=== PATIENT | female | born 1990 ===

== ENCOUNTER → 2019-07-01 | Outpatient (CLI) | payer OTHER ==
[~2019-07-01] VITALS: Ht 162 cm; Wt 86.3 kg
[~2019-07-01] MED LIST: OMEP40CA36 PO
== END | disposition home or self-care (01) ==
LOC: PREOP 06-28 06:03
PROVIDERS: ATTEND Surgery
DX: Z01.818 Encounter for other preprocedural examination (principal)

== ENCOUNTER 2019-07-05 08:43 | Day surgery (SDC) | payer OTHER ==
[~2019-07-05] VITALS: Ht 162.6 cm; Wt 86.3 kg
[2019-07-05] MEDS ORDERED: LACTATED RINGERS 1,000 ML IV ONE (09:01)
[2019-07-05 09:32] VITALS: BP 114/69
--- NOTE | 2019-07-05 09:32 | Progress Note-Pre Operative ---
Pre-Operative Progress Note H&P Reviewed The H&P was reviewed, patient examined and no changes noted. Time Seen by Provider: 09:26 Date H&P Reviewed: Jul 05, 2019 Time H&P Reviewed: 09:25 Pre-Operative Diagnosis: Epigastric burning pain, Gastritis SONNY RUIZ DO Jul 05, 2019 09:32 POS
[2019-07-05] MEDS ORDERED: LACTATED RINGERS 1,000 ML IV STA (09:42)
[2019-07-05] MEDS ORDERED: HURRICAINE EXT TUBE (BENZOCAINE) XX PRN (09:45)
[2019-07-05] MEDS ORDERED: proPOfol 200 MG/20 ML (DIPRIVAN) VIAL IV ONE (10:33)
[2019-07-05] MEDS ORDERED: MIDAZOLAM 2 MG/2 ML (VERSED) VIAL ONE (10:33)
[2019-07-05 10:55] VITALS: BP 115/63
--- NOTE | 2019-07-05 10:58 | Progress Note-Post Operative ---
Post-Operative Progess Note Surgeon (s)/Structural Analysis Engineer (s) Surgeon SONNY RUIZ DO Structural Analysis Engineer: none Pre-Operative Diagnosis Epigastric burning pain, Gastritis Post-Operative Diagnosis Gastritis Hiatal Hernia Procedure & Operative Findings Date of Procedure 07/05/19 Procedure Performed/Findings EGD with bx Anesthesia Type IV sedation by anesthesia Estimated Blood Loss Estimated blood loss (mL): scant Specimens/Packing Specimens Removed antral bx body of stomach bx GE jxn bx SONNY RUIZ DO Jul 05, 2019 10:58 POS
--- NOTE | 2019-07-05 10:59 | Endoscopy Discharge Instruct ---
Endo Procedure/Findings Findings 1.: Gastritis 2.: Hiatal Hernia Discharge Instructions - Activity: You might feel a little sleepy until tomorrow. This is due to the medicine you received to relax you. Until tomorrow, you should: NOT drive a car, operate machinery or power tools. NOT drink any alcoholic beverages. NOT make any important decisions or sign importortant papers. Do not return to work until tomorrow, unless otherwise instructed. Resume previous activities tomorrow. Diet: Start by taking liquids. If you tolerate liquids, advance to solid food. make an appointment in one week 1.: EGD in 3 years Notify Physician - If you experience excessive bleeding, unusual abdominal pain, fever, or chest pain, contact your doctor immediately. SONNY RUIZ DO Jul 05, 2019 10:59 POS
[2019-07-05 11:00] VITALS: BP 118/70
[2019-07-05 11:05] VITALS: BP 115/69
[2019-07-05 11:10] VITALS: BP 115/69
[2019-07-05 11:34] VITALS: BP 119/68
--- NOTE | 2019-07-05 23:54 | OPERATIVE REPORT ---
DATE OF SERVICE: PREOPERATIVE DIAGNOSIS: Epigastric pain. POSTOPERATIVE DIAGNOSES: 1. Gastritis. 2. Small hiatal hernia. PROCEDURE: EGD with biopsy. SURGEON: Rd Marrero DO. PLUNGER SHOVEL OPERATOR: None. ANESTHESIA: IV sedation by the anesthesiologist. SPECIMEN: One biopsy from the antrum, one biopsy from body of stomach, one biopsy of the GE junction. BLOOD LOSS: Scant. FLUIDS: Per anesthesia. POSTOPERATIVE CONDITION: Stable. INDICATION FOR PROCEDURE: The patient is a 28-year-old female who has been having epigastric abdominal pain. stomach or gallbladder. FINDINGS: The patient had very mild gastritis, small hiatal hernia, did have a little bit of change of the GE junction. Picture taken. Biopsy done. PROCEDURE NOTE: After informed consent was obtained, the patient was brought to the endoscopy suite, placed in the bed in the left lateral decubitus position. She was administered IV sedation by the anesthesiologist who then monitored her vitals the entire time, heart rate, blood pressure and pulse ox and the scope was inserted down the mouth through the esophagus and into the stomach, pushed into the stomach, pushed through the duodenum. Duodenum looked okay, pulled back in the antrum, saw some mild gastritis, did a biopsy here, pulled back the scope; retroflexed, saw very small hiatal hernia and then did a biopsy of body of stomach and then pulled the scope up into the GE junction, saw some mild changes, took a picture and then did a biopsy. Suctioned the air out of the stomach and then pulled the scope up the esophagus and out the mouth. The patient tolerated the procedure, recovered in endoscopy suite. Job ID: [id number] DocumentID: [id number] Dictated Date: 07/05/2019 19:58:35 [employer] Prospect[employer] Observer Date: 07/05/2019 23:53:37 Dictated By: RD MARRERO DO
== END 2019-07-05 11:50 | disposition home or self-care (01) ==
LOC: ENDO 08:43
PROVIDERS: ATTEND Surgery
DX: K29.50 Unspecified chronic gastritis without bleeding (principal); B96.81 Helicobacter pylori [H. pylori] as the cause of diseases classified elsewhere; K44.9 Diaphragmatic hernia without obstruction or gangrene; K21.9 Gastro-esophageal reflux disease without esophagitis
CPT/HCPCS: 84703

== ENCOUNTER → 2019-07-15 | Outpatient (CLI) | payer OTHER ==
--- NOTE | 2019-07-06 06:56 | Anesthesia-General Post-Op ---
MAC Patient Condition Mental Status/LOC: Same as Preop Cardiovascular: Satisfactory Nausea/Vomiting: Absent Respiratory: Satisfactory Pain: Controlled Complications: Absent Post Op Complications Complications None Follow Up Care/Instructions Patient Instructions None needed. Anesthesiology Discharge Order Discharge Order Late entry: Patient was seen yesterday after the procedure and she was doing well, no complaints, stable vital signs, no apparent adverse anesthesia problems. ROBER SNYDER DO Jul 06, 2019 06:56 POS
[~2019-07-15] VITALS: Ht 162.6 cm; Wt 86.3 kg
[~2019-07-15] MED LIST changes: +ACHD5005 PO; +CATHETER FLUSH 10 ML SYR IV PRN; +HURRICAINE EXT TUBE (BENZOCAINE) XX PRN; +LACTATED RINGERS 1,000 ML IV STA; +LANS30CA PO; +OMEP40CA27 PO; -OMEP40CA36 PO
--- NOTE | 2019-07-15 12:41 | Diagnostic Imaging Report ---
INDICATION: Epigastric pain. Patient was administered 5.5 mCi technetium 99m Choletec intravenously and imaging over the abdomen was performed. At 45 minutes patient ingested one can of Ensure and the gallbladder ejection fraction was calculated. There is homogeneous uptake of activity by the liver. Prompt excretion of activity into the gallbladder and common duct is seen. There is normal passage of activity into the small bowel. Gallbladder ejection fraction is abnormally low at 9%. Normal values are 33% or greater. IMPRESSION: 1. Patent cystic duct and common bile duct. 2. Abnormally low gallbladder ejection fraction of 9%. Dictated by: Dictated on workstation # [id number]
== END ==
LOC: EDUNIT# 07-05 10:00 → CARD 09:37
PROVIDERS: ATTEND Surgery
DX: R10.816 Epigastric abdominal tenderness (principal); R10.13 Epigastric pain
CPT/HCPCS: 78227

== ENCOUNTER 2019-07-20 13:09 | Outpatient (CLI) | payer OTHER ==
[~2019-07-20] VITALS: Ht 162 cm; Wt 86.3 kg
[~2019-07-20 13:09] MED LIST changes: -ACHD5005 PO; -CATHETER FLUSH 10 ML SYR IV PRN; -HURRICAINE EXT TUBE (BENZOCAINE) XX PRN; -LACTATED RINGERS 1,000 ML IV STA; -LANS30CA PO; -OMEP40CA27 PO; +OMEP40CA36 PO
[2019-07-20] MEDS ORDERED: LANS30CA PO (13:41)
[2019-07-20 14:14] LABS: BASOPHILS % (AUTO) 0 % (0-10); EOSINOPHILS # (AUTO) 0.1 10^3/uL (0.0-0.3); EOSINOPHILS % (AUTO) 2 % (0-10); HEMATOCRIT 38 % (35-52); HEMOGLOBIN 12.7 G/DL (11.5-16.0); LYMPHOCYTES # (AUTO) 2.2 X 10^3 (1.0-4.0); LYMPHOCYTES % (AUTO) 25 % (12-44); MEAN CORPUSCULAR HEMOGLOBIN 29 PG (25-34); MEAN CORPUSCULAR HGB CONC 34 G/DL (32-36); MEAN CORPUSCULAR VOLUME 86 FL (80-99); MEAN PLATELET VOLUME 10.8 FL (7.4-10.4); MONOCYTES # (AUTO) 0.4 X 10^3 (0.0-1.0); MONOCYTES % (AUTO) 4 % (0-12); NEUTROPHILS # (AUTO) 6.1 X 10^3 (1.8-7.8); NEUTROPHILS % (AUTO) 69 % (42-75); PLATELET COUNT 270 10^3/uL (130-400); RED CELL DISTRIBUTION WIDTH 12.8 % (10.0-14.5); WHITE BLOOD COUNT 8.8 10^3/uL (4.3-11.0)
[2019-07-22] MEDS ORDERED: ACHD5005 PO (09:44)
== END 2019-07-20 14:42 | disposition home or self-care (01) ==
LOC: PREOP 13:09
PROVIDERS: ATTEND Surgery
DX: Z01.818 Encounter for other preprocedural examination (principal); Z01.812 Encounter for preprocedural laboratory examination; K82.8 Other specified diseases of gallbladder
CPT/HCPCS: 36415; 85025; 87081

== ENCOUNTER 2019-08-16 10:04 | Outpatient (RCR) | payer OTHER ==
[~2019-08-16 10:04] MED LIST changes: +ACHD5005 PO; +LANS30CA PO; +OMEP40CA27 PO; -OMEP40CA36 PO
[2019-10-11] MEDS ORDERED: OMEP20CA18 PO (09:31)
== END 2019-11-14 | disposition home or self-care (01) ==
LOC: LAB 10:04 → EDSTATUS 10:04
PROVIDERS: ATTEND Surgery
DX: Z86.19 Personal history of other infectious and parasitic diseases (principal)
CPT/HCPCS: 36415; 87338

== ENCOUNTER → 2019-09-17 | Outpatient (CLI) | payer OTHER | LOC: LAB 09:50 | PROVIDERS: ATTEND Surgery | DX: R10.9 Unspecified abdominal pain (principal); B96.81 Helicobacter pylori [H. pylori] as the cause of diseases classified elsewhere | CPT/HCPCS: 36415; 87338 ==

== ENCOUNTER → 2019-10-04 | Outpatient (CLI) | payer OTHER | END | disposition home or self-care (01) | LOC: PREOP 05:40 | PROVIDERS: ATTEND Surgery | DX: Z01.818 Encounter for other preprocedural examination (principal) ==

== ENCOUNTER → 2020-03-09 | Outpatient (CLI) | payer SELFPAY ==
[~2020-03-09] MED LIST changes: +OMEP20CA18 PO
--- NOTE | 2020-03-09 10:13 | Diagnostic Imaging Report ---
PROCEDURE: MRI right joint lower extremity without contrast. TECHNIQUE: Multiplanar, multisequence non contrast-enhanced MRI of the right lower extremity was accomplished. INDICATION: Knee pain. There are no prior studies available for comparison. FINDINGS: On the proton-density fat-saturated sagittal series, there is no abnormal signal arising from either meniscus to indicate a tear. There is a vague area of slightly increased signal within the substance of the posterior horn of the medial meniscus. This is more likely due to degenerative disease than to a tear. The anterior and posterior cruciate ligament, quadriceps and infrapatellar tendons and the collateral ligaments, the biceps femoris tendon and the iliotibial band are intact. There is no sign of an injury to the medial or lateral retinaculum either. There is no abnormal signal arising from the osseous structures to suggest bone edema or fracture. The knee joint itself is fairly well-maintained. 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 There is a small joint effusion present. There is no evidence for a Koch's cyst. IMPRESSION: 1. There is no evidence for tear of either meniscus. The area of altered signal in the posterior horn of the medial meniscus is more likely due to degenerative disease than to a tear. 2. The major ligaments and tendons are intact. 3. There is no sign of an acute bony abnormality. 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 4. There is a small joint effusion present. Dictated by: Dictated on workstation # [id number]
--- NOTE | 2020-03-09 10:27 | Diagnostic Imaging Report ---
PROCEDURE: MRI left joint lower extremity without contrast. TECHNIQUE: Multiplanar, multisequence non contrast-enhanced MRI of the left lower extremity was accomplished. INDICATION: Knee pain. FINDINGS: On the proton dense fat saturated sagittal series, there is no abnormal signal arising from either meniscus to indicate a tear. There is a vague area of increased signal within the substance of the posterior horn of the medial meniscus. This signal abnormality does not communicate with the articular surface and consequently is more likely due to degenerative disease than to a tear. The anterior and posterior cruciate ligaments, quadriceps and infrapatellar tendons are intact. The collateral ligaments, the biceps femoris tendon and iliotibial band and medial lateral retinaculum show no sign of an acute abnormality. Along the lateral aspect of the medial femoral condyle anteriorly, there is a small 4.7 mm defect. This does suggest a small osteochondral injury. There is no bone edema in this region to suggest osteochondritis dissecans but that possibility should still be considered. There is no abnormal signal arising from the osseous structures to indicate bone edema or fracture. There is mild narrowing of the medial compartment of the knee joint. The lateral compartment and the patellofemoral spaces are fairly well-maintained. There is a small joint effusion present. There is no Koch's cyst identified, however. IMPRESSION: 1. There is no evidence for tear of either meniscus. The area of altered signal in the posterior horn of the medial meniscus is more likely due to degenerative disease than to a tear. 2. The major ligaments and tendons are intact. 3. There is no evidence for bone edema to suggest an acute injury. However, there is a small osteochondral defect along the anterior aspect of the lateral half of the medial femoral condyle. The possibility this is related to osteochondritis dissecans should be considered. 4. There is a small joint effusion present. Dictated by: Dictated on workstation # [id number]
== END ==
LOC: RAD 07:42
PROVIDERS: ATTEND Nurse Practitioner
DX: M17.11 Unilateral primary osteoarthritis, right knee (principal); M22.41 Chondromalacia patellae, right knee; M25.461 Effusion, right knee; M25.462 Effusion, left knee
CPT/HCPCS: 73721

== ENCOUNTER 2020-11-22 15:57 | Emergency (ER) | payer OTHER ==
[~2020-11-22] VITALS: Ht 162 cm; Wt 86.0 kg
[2020-11-22 16:20] LABS: BILIRUBIN,URINE NEGATIVE (NEGATIVE); CLARITY,URINE CLEAR; COLOR,URINE YELLOW; GLUCOSE, URINE (UA) NEGATIVE (NEGATIVE); KETONES,URINE NEGATIVE (NEGATIVE); LEUKOCYTE ESTERASE ,URINE 1+ (NEGATIVE); NITRITE,URINE NEGATIVE (NEGATIVE); PROTEIN,URINE NEGATIVE (NEGATIVE)
[2020-11-22 16:38] LABS: BACTERIA,URINE NEGATIVE /HPF
[2020-11-22 16:52] LABS: BASOPHILS % (AUTO) 0 % (0-10); EOSINOPHILS # (AUTO) 0.1 10^3/uL (0.0-0.3); EOSINOPHILS % (AUTO) 1 % (0-10); HEMATOCRIT 42 % (35-52); LYMPHOCYTES # (AUTO) 2.5 10^3/uL (1.0-4.0); LYMPHOCYTES % (AUTO) 23 % (12-44); MEAN CORPUSCULAR HEMOGLOBIN 29 pg (25-34); MEAN CORPUSCULAR HGB CONC 34 g/dL (32-36); MEAN CORPUSCULAR VOLUME 87 fL (80-99); MEAN PLATELET VOLUME 9.9 fL (9.0-12.2); MONOCYTES # (AUTO) 0.4 10^3/uL (0.0-1.0); MONOCYTES % (AUTO) 4 % (0-12); NEUTROPHILS # (AUTO) 7.9 10^3/uL (1.8-7.8); NEUTROPHILS % (AUTO) 72 % (42-75); PLATELET COUNT 353 10^3/uL (130-400)
[2020-11-22 17:03] LABS: ALBUMIN 4.2 GM/DL (3.2-4.5); CHLORIDE 104 MMOL/L (98-107); POTASSIUM 3.9 MMOL/L (3.6-5.0); SODIUM 137 MMOL/L (135-145)
[2020-11-22 17:05] LABS: CALCIUM 8.8 MG/DL (8.5-10.1)
[2020-11-22 17:06] LABS: GLUCOSE 100 MG/DL (70-105); TOTAL PROTEIN 7.9 GM/DL (6.4-8.2)
[2020-11-22 17:07] LABS: CARBON DIOXIDE 21 MMOL/L (21-32)
[2020-11-22 17:08] LABS: BILIRUBIN,TOTAL 0.4 MG/DL (0.1-1.0)
[2020-11-22 17:09] LABS: ALKALINE PHOSPHATASE 91 U/L (40-136)
[2020-11-22 17:10] LABS: CREATININE SERUM 0.83 MG/DL (0.60-1.30); GFR ESTIMATED > 60
[2020-11-22 17:11] LABS: BUN/CREATININE RATIO 7
[2020-11-22 17:12] LABS: ALANINE AMINOTRANSFERASE 24 U/L (0-55)
[2020-11-22] MEDS ORDERED: CATHETER FLUSH 10 ML SYR IV PRN (17:30)
[2020-11-22] MEDS ORDERED: NS 100 ML (IVPB) BAG IV ONE (17:30)
[2020-11-22] MEDS ORDERED: IOHEXOL 350 MG/ML 100 ML (OMNIPAQUE 350) VIAL IV ONE (17:30)
[2020-11-22] MEDS ORDERED: HOLD METFORMIN - RECEIVED CONTRAST 20 ML VIAL IV SCH (17:30)
--- NOTE | 2020-11-22 18:07 | Diagnostic Imaging Report ---
PROCEDURE: CT angiography of the chest with contrast. TECHNIQUE: Multiple contiguous axial images were obtained through the chest after uneventful bolus administration of intravenous contrast. 3D reconstructed CTA MIP acquisitions were also performed. Auto Exposure Controls were utilized during the CT exam to meet ALARA standards for radiation dose reduction. INDICATION: Chest pain for 5 days. There is good opacification of pulmonary arteries as well as thoracic aorta without filling defect to indicate embolism. Note is made of very small right vertebral artery or absence. Lungs are clear, bilaterally. No consolidation or noncalcified mass is identified. There is calcific granuloma in the right middle lobe. There is no significant pleural or pericardial fluid. Mediastinal structures are unremarkable in appearance. IMPRESSION: Unremarkable CT scan of the chest. Dictated by: Dictated on workstation # [id number]
--- NOTE | 2020-11-22 18:13 | ED General ---
General Chief Complaint: Chest Pain Stated Complaint: POST OP / HIGH HR / SOB / SHAKINESS Nursing Triage Note: Patient states that she had surgery on her left knee diego 11/17/20. Patient state since then she has been experiencing chest pain, shortness of breath and feeling as though her heart is racing. Patient denies fever and states she has not been around anyone that has been ill. Nursing Sepsis Screen: No Definite Risk Source of Information: Patient, Family, Supervisor [employer] Exam Limitations: No Limitations, Language Barrier History of Present Illness Date Seen by Provider: Nov 22, 2020 Time Seen by Provider: 16:13 Initial Comments This 30-year-old young lady presents to the emergency room with complaints of shortness of breath and pleuritic type of chest pain on postoperative day #5 after left knee surgery. She denies any pain in her calfs. She has felt slightly chilled but is afebrile. Her preop COVID-19 test was negative. Allergies and Home Medications Allergies Coded Allergies: No Known Drug Allergies (Unverified , 07/20/19) Home Medications Omeprazole 20 Mg Capsule.dr, 20 MG PO DAILY, (Reported) Patient Home Medication List Home Medication List Reviewed: Yes Review of Systems Review of Systems Constitutional: see HPI EENTM: no symptoms reported Respiratory: see HPI Cardiovascular: no symptoms reported Gastrointestinal: no symptoms reported Genitourinary: no symptoms reported : No Musculoskeletal: see HPI Skin: see HPI Psychiatric/Neurological: No Symptoms Reported Hematologic/Lymphatic: No Symptoms Reported Immunological/Allergic: no symptoms reported Past Rpmztfb-Ovtxop-Gxfxgi Hx Past Med/Social Hx: Reviewed Nursing Past Med/Soc Hx Patient Social History Alcohol Use: Denies Use Smoking Status: Unknown if Ever Smoked 2nd Hand Smoke Exposure: No Recent Infectious Disease Expo: No Recent Hopitalizations: No Immunizations Up To Date Tetanus Booster (TDap): Unknown PED Vaccines UTD: No Date of Influenza Vaccine: May 17, 2019 Seasonal Allergies Seasonal Allergies: No Past Medical History Surgeries: Yes (ARM, L&R Knee, hernia) Orthopedic Respiratory: No Cardiac: No Neurological: No Sexually Transmitted Disease: No HIV/AIDS: No Genitourinary: No Gastrointestinal: Yes Gastroesophageal Reflux, Chronic Constipation, Ulcer Musculoskeletal: No Endocrine: No HEENT: Yes (GLASSES) Cancer: No Psychosocial: No Integumentary: No Blood Disorders: No Adverse Reaction/Blood Tranf: No (N/A) Physical Exam Vital Signs Vital Signs - First Documented 11/22/20 16:51 Temp 36.6 Pulse 88 Resp 16 B/P (MAP) 133/75 (94) Pulse Ox 99 O2 Delivery Room Air Capillary Refill : Less Than 3 Seconds Height, Weight, BMI Height: '" Weight: lbs. oz. kg; 32.00 BMI Method: General Appearance: No Apparent Distress, WD/WN HEENT: PERRL/EOMI, Normal ENT Inspection Neck: Normal Inspection; No JVD Respiratory: Lungs Clear, Normal Breath Sounds, No Accessory Muscle Use, No Respiratory Distress Cardiovascular: Regular Rate, Rhythm, No Edema, No Murmur Gastrointestinal: Normal Bowel Sounds, Non Tender, Soft Extremity: No Calf Tenderness, Other (Sutures intact with no inflammatory changes over the left knee) Neurologic/Psychiatric: Alert, Oriented x3, No Motor/Sensory Deficits, Normal Mood/Affect, case planner II-XII Norm as Tested Skin: Normal Color, Warm/Dry Progress/Results/Core Measures Suspected Sepsis Recent Fever Within 48 Hours: No Infection Criteria Present: None New/Unexplained Altered Menta: No Sepsis Screen: No Definite Risk SIRS Temperature: Pulse: 88 Respiratory Rate: 16 Laboratory Tests 11/22/20 16:47: White Blood Count 11.0 Blood Pressure 133 /75 Mean: 94 Laboratory Tests 11/22/20 16:47: Creatinine 0.83, Platelet Count 353, Total Bilirubin 0.4 Results/Orders Lab Results Laboratory Tests Test 11/22/20 16:10 11/22/20 16:47 11/22/20 17:04 Range/Units Urine Color YELLOW Urine Clarity CLEAR Urine pH 6.0 5-9 Urine Specific [place] 1.010 L 1.016-1.022 Urine Protein NEGATIVE NEGATIVE Urine Glucose (UA) NEGATIVE NEGATIVE Urine Ketones NEGATIVE NEGATIVE Urine Nitrite NEGATIVE NEGATIVE Urine Bilirubin NEGATIVE NEGATIVE Urine Urobilinogen 0.2 < = 1.0 MG/DL Urine Leukocyte Esterase 1+ H NEGATIVE Urine RBC (Auto) NEGATIVE NEGATIVE Urine RBC NONE /HPF Urine WBC 5-10 H /HPF Urine Squamous Epithelial Cells 10-25 H /HPF Urine Crystals NONE /LPF Urine Bacteria NEGATIVE /HPF Urine Casts NONE /LPF Urine Mucus NEGATIVE /LPF Urine Culture Indicated NO White Blood Count 11.0 4.3-11.0 10^3/uL Red Blood Count 4.80 3.80-5.11 10^6/uL Hemoglobin 14.0 11.5-16.0 g/dL Hematocrit 42 35-52 % Mean Corpuscular Volume 87 80-99 fL Mean Corpuscular Hemoglobin 29 25-34 pg Mean Corpuscular Hemoglobin Concent 34 32-36 g/dL Red Cell Distribution Width 12.0 10.0-14.5 % Platelet Count 353 130-400 10^3/uL Mean Platelet Volume 9.9 9.0-12.2 fL Immature Granulocyte % (Auto) 0 % Neutrophils (%) (Auto) 72 42-75 % Lymphocytes (%) (Auto) 23 12-44 % Monocytes (%) (Auto) 4 0-12 % Eosinophils (%) (Auto) 1 0-10 % Basophils (%) (Auto) 0 0-10 % Neutrophils # (Auto) 7.9 H 1.8-7.8 10^3/uL Lymphocytes # (Auto) 2.5 1.0-4.0 10^3/uL Monocytes # (Auto) 0.4 0.0-1.0 10^3/uL Eosinophils # (Auto) 0.1 0.0-0.3 10^3/uL Basophils # (Auto) 0.0 0.0-0.1 10^3/uL Immature Granulocyte # (Auto) 0.0 0.0-0.1 10^3/uL Sodium Level 137 135-145 MMOL/L Potassium Level 3.9 3.6-5.0 MMOL/L Chloride Level 104 98-107 MMOL/L Carbon Dioxide Level 21 21-32 MMOL/L Anion Gap 12 5-14 MMOL/L Blood Urea Nitrogen 6 L 7-18 MG/DL Creatinine 0.83 0.60-1.30 MG/DL Estimat Glomerular Filtration Rate > 60 BUN/Creatinine Ratio 7 Glucose Level 100 70-105 MG/DL Calcium Level 8.8 8.5-10.1 MG/DL Corrected Calcium 8.6 8.5-10.1 MG/DL Total Bilirubin 0.4 0.1-1.0 MG/DL Aspartate Amino Transf (AST/SGOT) 15 5-34 U/L Alanine Aminotransferase (ALT/SGPT) 24 0-55 U/L Alkaline Phosphatase 91 40-136 U/L Troponin I < 0.028 <0.028 NG/ML C-Reactive Protein High Sensitivity 1.91 H 0.00-0.50 MG/DL Total Protein 7.9 6.4-8.2 GM/DL Albumin 4.2 3.2-4.5 GM/DL Serum Test, Qualitative NEGATIVE NEGATIVE Coronavirus 2019 (TIMO) Not Detected Not Detecte Micro Results Microbiology 11/22/20 Influenza Types A,B Antigen (WILL) - Final, Complete My Orders Orders - BARBARA TURCIOS MD Cbc With Automated Diff (11/22/20 16:13) Comprehensive Metabolic Panel (11/22/20 16:13) Hs C Reactive Protein (11/22/20 16:13) Ua Culture If Indicated (11/22/20 16:13) Ed Iv/Invasive Line Start (11/22/20 16:13) Influenza A And B Antigens (11/22/20 16:51) Covid 19 Inhouse Test (11/22/20 16:51) Hcg,Qualitative Serum (11/22/20 16:51) Ct Angio Chest W (11/22/20 16:55) Troponin I (11/22/20 17:15) Iohexol Injection (Omnipaque 350 Mg/Ml 1 (11/22/20 17:30) Received Contrast (Hold Metformin- Contr (11/22/20 17:30) Sodium Chloride Flush (Catheter Flush Sy (11/22/20 17:30) Ns (Ivpb) (Sodium Chloride 0.9% Ivpb Bag (11/22/20 17:30) Medications Given in ED Current Medications Medications Dose Ordered Sig/Narayan Route Start Time Stop Time Status Last Admin Dose Admin Iohexol 100 ml ONCE ONCE IV 11/22/20 17:30 11/22/20 17:53 DC 11/22/20 18:00 74 ML Sodium Chloride 10 ml NEEDED PRN IV 11/22/20 17:30 11/22/20 18:00 10 ML Sodium Chloride 100 ml ONCE ONCE IV 11/22/20 17:30 11/22/20 17:53 DC 11/22/20 18:00 80 ML Vital Signs/I&O 11/22/20 11/22/20 16:51 16:51 Temp 36.6 Pulse 88 Resp 16 B/P (MAP) 133/75 (94) Pulse Ox 99 O2 Delivery Room Air Room Air Capillary Refill : Less Than 3 Seconds Blood Pressure Mean: 94 Progress Note : Progress Note Thorough work-up including CT angiogram of the chest was unremarkable. Rapid flu and Covid test were negative. EKG was unremarkable. Patient was given reassurance. ECG Initial ECG Impression Date: Nov 22, 2020 Initial ECG Impression Time: 16:30 Initial ECG Rate: 82 Initial ECG Rhythm: Normal Sinus Initial ECG Intervals: Normal Initial ECG Impression: Normal Comment Normal sinus rhythm with no ST elevation or depression. No abnormal intervals or axis deviation. Diagnostic Imaging Diagonstic Imaging: CT Plain Films/CT/US/NM/MRI: chest Comments CT angiogram chest viewed by me and report reviewed. See report below: NAME: ROMA GARCIA [facility] REC#: [id number] PT STATUS: REG ER : 1990 PHYSICIAN: BARBARA TURCIOS MD ADMIT DATE: 11/22/20/ER Draft Date of Exam:11/22/20 CT ANGIO CHEST W PROCEDURE: CT angiography of the chest with contrast. TECHNIQUE: Multiple contiguous axial images were obtained through the chest after uneventful bolus administration of intravenous contrast. 3D reconstructed CTA MIP acquisitions were also performed. Auto Exposure Controls were utilized during the CT exam to meet ALARA standards for radiation dose reduction. INDICATION: Chest pain for 5 days. There is good opacification of pulmonary arteries as well as thoracic aorta without filling defect to indicate embolism. Note is made of very small right vertebral artery or absence. Lungs are clear, bilaterally. No consolidation or noncalcified mass is identified. There is calcific granuloma in the right middle lobe. There is no significant pleural or pericardial fluid. Mediastinal structures are unremarkable in appearance. IMPRESSION: Unremarkable CT scan of the chest. Dictated on workstation # [id number] Dict: 11/22/20 1803 Trans: 11/22/20 1807 [facility] [phone] Interpreted by: ANNETTA ALEXANDRA MD Departure Impression Primary Impression: Dyspnea Qualified Codes: R06.00 - Dyspnea, unspecified Additional Impressions: Chest pain, pleuritic Palpitations Disposition: 01 HOME, SELF-CARE Condition: Stable Departure-Patient Inst. Decision time for Depature: 18:36 Referrals: [facility] (PCP/Family) Primary Care Physician Patient Instructions: Pleuritic Chest Pain Add. Discharge Instructions: For your discomfort you may take ibuprofen up to 600 mg every 6 hours as needed or Tylenol (acetaminophen) up to 1000 mg every 6 hours as needed. If you are still feeling short of breath tomorrow, please call your doctor to schedule a follow-up appointment. Call with questions or concerns. Return to the emergency room if you have worsening condition. All discharge instructions reviewed with patient and/or family. Voiced understanding. Copy Copies To 1: TANIA ABRAMS JOSHUA T MD Nov 22, 2020 18:13
[2020-11-22 18:48] VITALS: BP 123/77
== END 2020-11-22 18:48 | disposition home or self-care (01) ==
LOC: EDUNIT# 15:57 → ER 15:59
DX: R06.00 Dyspnea, unspecified (principal); R07.81 Pleurodynia; R00.2 Palpitations; K21.9 Gastro-esophageal reflux disease without esophagitis; Z20.822 Contact with and (suspected) exposure to COVID-19
CPT/HCPCS: 71275; 80053; 81000; 84484; 84703; 85025; 86141; 87804; 93005; 99284; U0002; 36415; 87635

== ENCOUNTER → 2021-12-04 | Outpatient (CLI) | payer OTHER ==
[~2021-12-04] MED LIST changes: -OMEP40CA27 PO; +OMEP40CA6 PO
[2021-12-04 09:19] LABS: ALBUMIN 3.3 GM/DL (3.2-4.5); BILIRUBIN,TOTAL 0.3 MG/DL (0.1-1.0); CALCIUM 8.8 MG/DL (8.5-10.1); CREATININE SERUM 0.66 MG/DL (0.60-1.30); TOTAL PROTEIN 6.5 GM/DL (6.4-8.2)
== END ==
LOC: LAB 08:09
PROVIDERS: ATTEND Family Medicine
DX: O16.3 Unspecified maternal hypertension, third trimester (principal); Z3A.00 Weeks of gestation of pregnancy not specified
CPT/HCPCS: 36415; 80053; 83615

== ENCOUNTER 2021-12-26 15:15 | Inpatient (IN) | payer OTHER ==
[~2021-12-26] VITALS: Ht 160 cm; Wt 103.1 kg
[2021-12-26] MEDS ORDERED: D5 LR IV SOLUTION 1,000 ML IV ONE (19:17)
[2021-12-26] MEDS: D5 LR IV SOLUTION 1,000 ML IV SCH (19:30)
[2021-12-26] MEDS ORDERED: MINERAL OIL 30 ML TOP PRN (19:45)
[2021-12-26] MEDS ORDERED: LACTATED RINGERS 1,000 ML IV SCH (19:45)
[2021-12-26 20:00] VITALS: BP 138/79
[2021-12-26 20:04] LABS: BASOPHILS % (AUTO) 0 % (0-10); EOSINOPHILS # (AUTO) 0.1 10^3/uL (0.0-0.3); EOSINOPHILS % (AUTO) 1 % (0-10); HEMATOCRIT 34 % (35-52); HEMOGLOBIN 11.4 g/dL (11.5-16.0); LYMPHOCYTES % (AUTO) 20 % (12-44); MEAN CORPUSCULAR HEMOGLOBIN 30 pg (25-34); MEAN CORPUSCULAR HGB CONC 33 g/dL (32-36); MEAN CORPUSCULAR VOLUME 90 fL (80-99); MEAN PLATELET VOLUME 11.1 fL (9.0-12.2); MONOCYTES # (AUTO) 0.4 10^3/uL (0.0-1.0); MONOCYTES % (AUTO) 4 % (0-12); NEUTROPHILS # (AUTO) 7.2 10^3/uL (1.8-7.8); NEUTROPHILS % (AUTO) 74 % (42-75); PLATELET COUNT 218 10^3/uL (130-400); WHITE BLOOD COUNT 9.8 10^3/uL (4.3-11.0)
[2021-12-26 20:17] LABS: ALBUMIN 3.1 GM/DL (3.2-4.5); POTASSIUM 3.6 MMOL/L (3.6-5.0)
[2021-12-26 20:18] LABS: CALCIUM 8.5 MG/DL (8.5-10.1)
[2021-12-26 20:19] LABS: TOTAL PROTEIN 5.8 GM/DL (6.4-8.2)
[2021-12-26 20:21] LABS: BILIRUBIN,TOTAL 0.3 MG/DL (0.1-1.0)
[2021-12-26 20:23] LABS: CREATININE SERUM 0.61 MG/DL (0.60-1.30)
[2021-12-26 20:26] LABS: URIC ACID 4.7 MG/DL (2.6-7.2)
--- NOTE | 2021-12-26 20:43 | History & Physical-OB ---
OB - Chief Complaint & HPI Date/Time Date of Admission: Date of Admission: December 26, 2021 at 18:57 Date seen by a Provider: December 26, 2021 Time Seen by a Provider: 20:25 Chief Complaint/History OB-Reason for Admission/Chief: Medical Complication Hx : 2 Hx Para: 1 Expected Date of Delivery: Jan 09, 2022 Gestational Age in Weeks: 38 Gestational Age in Days: 0 Indication for induction: medical complication (gestational hypertension) Other reason for admission: 31 yo at 38w0d here for IOL due to recent onset gestational hypertension. History of Labs O+, antibody neg, RI. HIV/HepB/RPR NR. GC/chlamydia neg. 1 hour glucola normal. GBS neg. Allergies and Home Medications Allergies Coded Allergies: No Known Drug Allergies (Unverified , 07/20/19) Patient Home Medication List Home Medication List Reviewed: Yes Butalb/Acetaminophen/Caffeine (Yofofx-Plgycznc-Vcbf 50-300-40) 50 Mg-300 Mg-40 Mg Capsule, 1 EACH PO Q4H PRN for HEADACHE, (Reported) Entered as Reported by: MARIA DEL CARMEN VALDIVIA on 12/26/212045 Last Action: Reviewed Cetirizine HCl (Cetirizine HCl) 10 Mg Tablet, 10 MG PO DAILY, (Reported) Entered as Reported by: MARIA DEL CARMEN VALDIVIA on 12/26/212045 Last Action: Reviewed Cholecalciferol (Vitamin D3) (Vitamin D3) 25 Mcg (1000 Unit) Capsule, 25 MCG PO DAILY, (Reported) Entered as Reported by: MARIA DEL CARMEN VALDIVIA on 12/26/212045 Last Action: Reviewed Fluticasone Propionate (Fluticasone Propionate) 50 Mcg/Actuation [place]clay.susp, 15.8 ML NS DAILY, (Reported) Entered as Reported by: MARIA DEL CARMEN VALDIVIA on 12/26/212045 Last Action: Reviewed Hydrocodone/Acetaminophen (Hydrocodone-Acetamin 5-325 mg) 5 Mg-325 Mg Tablet, 1 TAB PO Q4H PRN for PAIN-MODERATE (5-7), (Reported) Entered as Reported by: MARIA DEL CARMEN VALDIVIA on 12/26/212045 Last Action: Reviewed Metoclopramide HCl (Metoclopramide HCl) 10 Mg Tablet, 10 MG PO QID PRN for NAUSEA/VOMITING, (Reported) Entered as Reported by: MARIA DEL CARMEN VALDIVIA on 12/26/212045 Last Action: Reviewed Omeprazole (Omeprazole) 20 Mg Capsule.dr, 20 MG PO DAILY, (Reported) Entered as Reported by: STEVIE MEDEL on 10/11/19930 Last Action: Reviewed Ondansetron (Ondansetron Odt) 4 Mg Tab.rapdis, 4 MG PO Q4H PRN for NAUSEA/VOMITING-2ND LINE, (Reported) Entered as Reported by: MARIA DEL CARMEN VALDIVIA on 12/26/212045 Last Action: Reviewed Vit W-Ca,Fe,FA(<1 mg) ( Vitamins) 27 Mg Iron-800 Mcg Tablet, 1 EACH PO DAILY, (Reported) Entered as Reported by: MARIA DEL CARMEN VALDIVIA on 12/26/212045 Last Action: Reviewed OB - History Hx of Present Care: Yes Ultrasounds: Normal mid trimester US Obstetrical Complications: Gestational Hypertension Medical Complications: Neurological (headaches) Information Induced Hypertension: Yes Maternal Gestational Diabetes: No Hemorrhage: No Obstetrical History Hx : 2 Hx Para: 1 Hx # Term Pregnancies: 1 Hx # Pregnancies: 0 Number of Living Children: 1 Hx Multiple Gestation: No Hx Ectopic : No Hx Stillbirth: No Hx Complication: Yes Hx Induced Hypertens: Yes (preeclampsia with first , GHTN with current) Hx Maternal Gestational Diabet: No Hx Hemorrhage: No Delivery History Hx Dystocia: No Hx Forceps Assisted Delivery: No Hx Vacuum Extraction Assisted: No Hx Placenta Abnormality: No Hx Distress: No Hx Large For Gestational Age I: Yes Hx Small for Gestational Age I: No Hx Section: No Hx Vaginal Delivery Post C-Sec: No Hx Blood Disorders: No Adverse Rxn to Tranfusion: No (N/A) Patient Past Medical History PMHx: Asthma as a child Preeclampsia with first SurgHx: Cholecystectomy Knee and hand procedures Social History/Family History Alcohol Use: Denies Use Recreational Drug Use: No Smoking Cessation: Never smoker 2nd Hand Smoke Exposure: No Immunizations First/Initial COVID19 Vaccine: 11/24/2020 Second COVID19 Vaccination: 12/22/2020 Third COVID19 Vaccination Date: 07/16/2021 COVID19 Vaccine [employer] Representative: Modernmichelle Hepatitis A: Yes Hepatitis B: Yes Tetanus Booster (TDap): Less than 5yrs (10/31/2021) Rubella: immune RPR/VDRL: Negative GBS Status: Negative HBsAG: Negative OB - Admission Exam Physical Exam HEENT: NCAT Abdomen: Non tender Extremities: Normal Cervical Dilatation: 2cm Effacement: 0% Station: -3 Membranes: Intact Heart Rate: 140's Accelerations: Accelerations Present Decelerations: No Decelerations Short Term Variability: Present Shelter Variability: Average (6-25) Contractions on Admission: None Rucker Scoring Tool (Modified) Dilation (cm): 1-2cm (1) Effacement (%): 0-30% (0) Descent/Station: -3 (0) Cervix Consistency: Soft (2) Cervix Position: Anterior (2) Add 1 point for: Each previous vaginal delivery (1) Rucker Score: 6 Labs Laboratory Tests Test 12/26/21 19:10 12/26/21 19:52 Range/Units Urine Protein 8 6-12 MG/DL Urine Creatinine 98 30-125 MG/DL Urine Protein/Creatinine Ratio 0.08 White Blood Count 9.8 4.3-11.0 10^3/uL Red Blood Count 3.80 3.80-5.11 10^6/uL Hemoglobin 11.4 L 11.5-16.0 g/dL Hematocrit 34 L 35-52 % Mean Corpuscular Volume 90 80-99 fL Mean Corpuscular Hemoglobin 30 25-34 pg Mean Corpuscular Hemoglobin Concent 33 32-36 g/dL Red Cell Distribution Width 12.8 10.0-14.5 % Platelet Count 218 130-400 10^3/uL Mean Platelet Volume 11.1 9.0-12.2 fL Immature Granulocyte % (Auto) 1 % Neutrophils (%) (Auto) 74 42-75 % Lymphocytes (%) (Auto) 20 12-44 % Monocytes (%) (Auto) 4 0-12 % Eosinophils (%) (Auto) 1 0-10 % Basophils (%) (Auto) 0 0-10 % Neutrophils # (Auto) 7.2 1.8-7.8 10^3/uL Lymphocytes # (Auto) 2.0 1.0-4.0 10^3/uL Monocytes # (Auto) 0.4 0.0-1.0 10^3/uL Eosinophils # (Auto) 0.1 0.0-0.3 10^3/uL Basophils # (Auto) 0.0 0.0-0.1 10^3/uL Immature Granulocyte # (Auto) 0.1 0.0-0.1 10^3/uL Sodium Level 137 135-145 MMOL/L Potassium Level 3.6 3.6-5.0 MMOL/L Chloride Level 110 H 98-107 MMOL/L Carbon Dioxide Level 16 L 21-32 MMOL/L Anion Gap 11 5-14 MMOL/L Blood Urea Nitrogen 7 7-18 MG/DL Creatinine 0.61 0.60-1.30 MG/DL Estimat Glomerular Filtration Rate 123 BUN/Creatinine Ratio 11 Glucose Level 109 H 70-105 MG/DL Uric Acid 4.7 2.6-7.2 MG/DL Calcium Level 8.5 8.5-10.1 MG/DL Corrected Calcium 9.2 8.5-10.1 MG/DL Total Bilirubin 0.3 0.1-1.0 MG/DL Aspartate Amino Transf (AST/SGOT) 13 5-34 U/L Alanine Aminotransferase (ALT/SGPT) 11 0-55 U/L Alkaline Phosphatase 146 H 40-136 U/L Lactate Dehydrogenase 188 125-220 U/L Total Protein 5.8 L 6.4-8.2 GM/DL Albumin 3.1 L 3.2-4.5 GM/DL OB - Assessment/Plan/Diagnosis Assessment Admission Dx Gestational hypertension 38 weeks gestation GBS negative Admission Status: Inpatient Order (span 2 midnights) Reason for Inpatient Admission: Labor, delivery and course Plan Plan: Induction Induction Method: per Misoprostol Protocol Other Plan Preeclampsia labs on admit MARIA DEL CARMEN VALDIVIA MD December 26, 2021 20:43
[2021-12-26] MEDS ORDERED: CETI10TA17 PO (20:46)
[2021-12-26] MEDS ORDERED: CHOL10007 PO (20:46)
[2021-12-26] MEDS ORDERED: PREN1TAB79 PO (20:46)
[2021-12-26] MEDS ORDERED: MTC10T PO (20:46)
[2021-12-26] MEDS ORDERED: BUTA1CAP41 PO (20:46)
[2021-12-26] MEDS ORDERED: ONDA4TAB11 PO (20:46)
[2021-12-26] MEDS ORDERED: FLUT15.845 NS (20:46)
[2021-12-26] MEDS ORDERED: ACHD5005 PO (20:46)
[2021-12-26 21:00] VITALS: BP 117/62
[2021-12-26 22:00] VITALS: BP 120/72
[2021-12-26] MEDS ORDERED: CATHETER FLUSH 10 ML SYR IV SCH (22:00)
[2021-12-26 23:00] VITALS: BP 111/53
[2021-12-27] VITALS (50 sets, daily range): BP systolic 83–146; BP diastolic 48–83
[2021-12-27] MEDS: D5 LR IV SOLUTION 1,000 ML IV SCH ×2 (04:35→10:24)
--- NOTE | 2021-12-27 07:50 | Labor Progress Note ---
Labor Progress Note Labor Progress Note Date Seen by Provider: December 27, 2021 Time Seen by Provider: 07:40 Subjective: Pt hurting with contractions, requesting pain medication. Objective: (Can we insert 24 hour vitals here?) Cervical exam: 4.5/50/-3 Consistency: soft Position: anterior Presentation: vertex heart tones: 150 beats per minute, moderate variability, reactive, category I tracing Tocometer: 5 ctx/10 minutes Assessment/Plan: Maribel Carlson is a (31 /Para 2 / 1,Gestational Age (wks)38 here for induction of labor for GHTN. AROM done at time of exam with clear fluid return. FSE/TOCO Risa well after last dose of cytotec (0434 today), will manage expe ctantly after rupture Anesthesia: none Anticipate vaginal delivery. Vitals - Labs Vital Signs - I&O Vital Signs Date Time Temp Pulse Resp B/P (MAP) Pulse Ox O2 Delivery O2 Flow Rate FiO2 12/27/21 07:00 53 18 105/57 (73) 100 Room Air 12/27/21 05:58 60 18 99/51 (67) 99 Room Air 12/27/21 05:00 58 18 105/56 (72) 99 Room Air 12/27/21 04:00 59 18 126/71 (89) 99 Room Air 12/27/21 03:00 57 18 100/57 (71) 12/27/21 02:04 36.7 59 18 99 Room Air 12/27/21 02:00 61 18 106/56 (73) 12/27/21 01:00 59 18 99/55 (70) 99 Room Air 12/27/21 00:00 61 18 98/51 (67) 98 Room Air 12/26/21 23:00 63 18 111/53 (72) 12/26/21 22:00 74 18 120/72 (88) 12/26/21 21:00 36.7 64 18 117/62 (80) 12/26/21 20:00 36.8 75 18 138/79 (98) Labs Laboratory Tests 12/26/21 19:10: Urine Protein 8, Urine Creatinine 98, Urine Protein/Creatinine Ratio 0.08 12/26/21 19:52: White Blood Count 9.8, Red Blood Count 3.80, Hemoglobin 11.4L, Hematocrit 34L, Mean Corpuscular Volume 90, Mean Corpuscular Hemoglobin 30, Mean Corpuscular Hemoglobin Concent 33, Red Cell Distribution Width 12.8, Platelet Count 218, Mean Platelet Volume 11.1, Immature Granulocyte % (Auto) 1, Neutrophils (%) (Auto) 74, Lymphocytes (%) (Auto) 20, Monocytes (%) (Auto) 4, Eosinophils (%) (Auto) 1, Basophils (%) (Auto) 0, Neutrophils # (Auto) 7.2, Lymphocytes # (Auto) 2.0, Monocytes # (Auto) 0.4, Eosinophils # (Auto) 0.1, Basophils # (Auto) 0.0, Immature Granulocyte # (Auto) 0.1, Sodium Level 137, Potassium Level 3.6, Chloride Level 110H, Carbon Dioxide Level 16L, Anion Gap 11, Blood Urea Nitrogen 7, Creatinine 0.61, Estimat Glomerular Filtration Rate 123, BUN/Creatinine Ratio 11, Glucose Level 109H, Uric Acid 4.7, Calcium Level 8.5, Corrected Calcium 9.2, Total Bilirubin 0.3, Aspartate Amino Transf (AST/SGOT) 13, Alanine Ken otransferase (ALT/SGPT) 11, Alkaline Phosphatase 146H, Lactate Dehydrogenase 188, Total Protein 5.8L, Albumin 3.1L MARIA DEL CARMEN VALDIVIA MD December 27, 2021 07:50
[2021-12-27] MEDS: fentaNYL INJ 100 MCG/2 ML AMP IVP PRN ×2 (07:52→10:25)
[2021-12-27] MEDS ORDERED: ONDANSETRON 4 MG/2 ML (SDV) Z0FRAN ONE (10:13)
[2021-12-27] MEDS ORDERED: OXYTOCIN PRE-MIX DRIP 500 ML IV ONE ×3 (10:30→19:59)
[2021-12-27] MEDS ORDERED: LIDOCAINE/EPI 2% 1:200,00 (XYLOCAINE) 10 ML VIAL ONE (10:30)
[2021-12-27] MEDS ORDERED: fentaNYL 2 mcg/ml BUPIVA 0.125 100 ML ONE (11:18)
[2021-12-27] MEDS ORDERED: BUPIVACAINE 0.25% 10 ML (SENSORCAINE) VIAL ONE (11:44)
[2021-12-27] MEDS ORDERED: fentaNYL INJ 100 MCG/2 ML AMP ONE (11:44)
[2021-12-27] MEDS ORDERED: ONDANSETRON 4 MG/2 ML (SDV) Z0FRAN IVP PRN (11:45)
[2021-12-27] MEDS ORDERED: CATHETER FLUSH 10 ML SYR IV PRN (12:00)
[2021-12-27] MEDS ORDERED: LACTATED RINGERS 1,000 ML IV ONE (12:00)
[2021-12-27] MEDS ORDERED: fentaNYL 2 mcg/ml BUPIVA 0.125 100 ML IV SCH (12:00)
[2021-12-27] MEDS ORDERED: NALOXONE 0.4 MG/ML 1 ML (NARCAN) VIAL IV PRN (12:00)
--- NOTE | 2021-12-27 16:47 | OB Labor & Delivery Record ---
Vag Delivery Note Vag Delivery Note Date of Delivery: 12/27/21 Preoperative Diagnosis: Maribel Carlson is a (31 /Para 2 / 1, Gestational Age (wks)38with 1 day, complicated by GHTN Postoperative Diagnosis: Same Surgeon: MARIA DEL CARMEN VALDIVIA Anesthesia: Epidural Delivery Type: Findings: Viable male infant, apgars 8/9, weight 7#14 Lacerations: perineal abrasion Intact placenta with 3 vessel cord. No nuchal cord, body cord or shoulder dystocia Estimated Blood Loss: 200 ml Complications: None Condition: Stable Description of Procedure: The patient is a 31 year old female who presented for IOL for GHTN. She was admitted and informed consent was obtained. Her labor course was remarkable for one episode of prolonged deceleration after low BP post-epidural. She progressed to complete dilatation and began to push. She was then set up for delivery. The infant's head was delivered atraumatically in the OA position. The shoulders and remainder of the 's body were then delivered without difficulty. Upon delivery, the was vigorous and placed on maternal abdomen. The cord was doubly clamped and cut and the remained on maternal chest. An intact placenta with 3-vessel cord delivered via Sara and there was found to be minimal bleeding.~ Vigorous fundal massage was performed and the fundus was found to be firm. IV oxytocin was given. Examination of the vagina and perineum revealed a perineal abrasion not requiring repair. Following the delivery, sponge, instrument and needle counts were correct. Mom and baby were both in stable condition in the labor suite. Vitals - Labs Vital Signs - I&O Vital Signs Date Time Temp Pulse Resp B/P (MAP) Pulse Ox O2 Delivery O2 Flow Rate FiO2 12/27/21 15:12 75 18 115/57 (76) 100 Room Air 12/27/21 14:58 60 18 117/56 (76) 100 Room Air 12/27/21 14:41 65 18 112/58 (76) 100 Room Air 12/27/21 14:27 71 18 112/58 (76) 100 Room Air 12/27/21 14:13 64 18 120/61 (80) 100 Room Air 12/27/21 13:57 71 18 112/83 (93) 100 Room Air 12/27/21 13:43 69 18 127/75 (92) 100 Room Air 12/27/21 13:30 35.8 63 18 124/82 (96) 99 Room Air 12/27/21 13:13 80 18 83/48 (60) 99 Room Air 12/27/21 13:00 36.0 12/27/21 12:50 79 18 97/56 (70) 96 Room Air 12/27/21 12:40 67 18 94/54 (67) 98 Room Air 12/27/21 12:35 104 18 87/51 (63) 98 Room Air 12/27/21 12:30 84 18 106/57 (73) 98 Room Air 12/27/21 12:24 90 18 105/58 (74) 99 Room Air 12/27/21 12:21 90 18 96/60 (72) 99 Room Air 12/27/21 12:18 82 18 114/57 (76) 99 Room Air 12/27/21 12:15 78 18 113/60 (77) 99 Room Air 12/27/21 12:13 80 18 127/61 (83) Room Air 12/27/21 12:10 86 18 124/79 (94) 100 Room Air 12/27/21 12:07 69 18 123/63 (83) 98 Room Air 12/27/21 12:03 89 18 141/80 (100) 98 Room Air 12/27/21 12:00 92 18 146/74 (98) 100 Room Air 12/27/21 11:10 57 18 118/60 (79) Room Air 12/27/21 10:27 35.8 12/27/21 10:10 65 18 132/62 (85) Room Air 12/27/21 09:10 65 18 134/61 (85) Room Air 12/27/21 09:00 35.4 12/27/21 08:11 67 18 120/74 (89) Room Air 12/27/21 07:35 36.3 12/27/21 07:10 63 18 110/62 (78) 100 Room Air 12/27/21 07:00 53 18 105/57 (73) 100 Room Air 12/27/21 05:58 60 18 99/51 (67) 99 Room Air 12/27/21 05:00 58 18 105/56 (72) 99 Room Air 12/27/21 04:00 59 18 126/71 (89) 99 Room Air 12/27/21 03:00 57 18 100/57 (71) 12/27/21 02:04 36.7 59 18 99 Room Air 12/27/21 02:00 61 18 106/56 (73) 12/27/21 01:00 59 18 99/55 (70) 99 Room Air 12/27/21 00:00 61 18 98/51 (67) 98 Room Air 12/26/21 23:00 63 18 111/53 (72) 12/26/21 22:00 74 18 120/72 (88) 12/26/21 21:00 36.7 64 18 117/62 (80) 12/26/21 20:00 36.8 75 18 138/79 (98) I & O 12/27/21 07:00 Intake Total 1000 ml Balance 1000 ml Labs Laboratory Tests 12/26/21 19:10: Urine Protein 8, Urine Creatinine 98, Urine Protein/Creatinine Ratio 0.08 12/26/21 19:52: White Blood Count 9.8, Red Blood Count 3.80, Hemoglobin 11.4L, Hematocrit 34L, Mean Corpuscular Volume 90, Mean Corpuscular Hemoglobin 30, Mean Corpuscular Hemoglobin Concent 33, Red Cell Distribution Width 12.8, Platelet Count 218, Mean Platelet Volume 11.1, Immature Granulocyte % (Auto) 1, Neutrophils (%) (Aut o) 74, Lymphocytes (%) (Auto) 20, Monocytes (%) (Auto) 4, Eosinophils (%) (Auto) 1, Basophils (%) (Auto) 0, Neutrophils # (Auto) 7.2, Lymphocytes # (Auto) 2.0, Monocytes # (Auto) 0.4, Eosinophils # (Auto) 0.1, Basophils # (Auto) 0.0, Immature Granulocyte # (Auto) 0.1, Sodium Level 137, Potassium Level 3.6, Chloride Level 110H, Carbon Dioxide Level 16L, Anion Gap 11, Blood Urea Nitrogen 7, Creatinine 0.61, Estimat Glomerular Filtration Rate 123, BUN/Creatinine Ratio 11, Glucose Level 109H, Uric Acid 4.7, Calcium Level 8.5, Corrected Calcium 9.2, Total Bilirubin 0.3, Aspartate Amino Transf (AST/SGOT) 13, Alanine Aminotransferase (ALT/SGPT) 11, Alkaline Phosphatase 146H, Lactate Dehydrogenase 188, Total Protein 5.8L, Albumin 3.1L SHEA,MARIA DEL CARMEN N MD December 27, 2021 16:47
[2021-12-27] MEDS ORDERED: IBUP-1773 PO (16:50)
[2021-12-27] MEDS ORDERED: OXYTOCIN PRE-MIX DRIP 500 ML IV SCH (17:15)
[2021-12-27] MEDS ORDERED: WITCH HAZEL(TUCKS) 40 EA JAR TOP PRN (17:15)
[2021-12-27] MEDS ORDERED: BENZOCAINE/MENTHOL (DERMOPLAST) 56 ML CAN TP PRN (17:15)
[2021-12-27] MEDS: IBUPROFEN 600 MG (MOTRIN) TAB PO SCH (18:43)
[2021-12-27] MEDS ORDERED: METOCLOPRAMIDE INJ 10 MG/2 ML (REGLAN) ONE (19:30)
[2021-12-27] MEDS ORDERED: FAMOTIDINE 20MG/2ML IV (PEPCID) ONE (19:30)
[2021-12-27] MEDS ORDERED: CITRIC ACID/SOB CIT (BICITRA) 30 ML UDC ONE (19:30)
[2021-12-27] MEDS ORDERED: MEPIVACAINE (CARBOCAINE) 2% 50 ML VIAL ONE (19:31)
[2021-12-27] MEDS ORDERED: diphenhydrAMINE 25 MG TAB (BENADRYL) PO ONE ×3 (20:20→20:27)
[2021-12-27] MEDS ORDERED: NS (IVPB) 250 ML ONE (20:44)
[2021-12-27] MEDS ORDERED: GENTAMICIN (PED.) 20 MG/2 ML VIAL ONE ×2 (20:44→20:53)
[2021-12-27] MEDS ORDERED: AZITHROMYCIN INJECTION 500 MG/5 ML VIAL ONE (20:44)
[2021-12-27] MEDS ORDERED: CLINDAMYCIN 900 MG/50 ML IVPB 50 ML IV ONE (20:44)
[2021-12-27] MEDS ORDERED: NS (IVPB) 100 ML ONE (20:53)
[2021-12-27] MEDS ORDERED: CATHETER FLUSH 10 ML SYR IV SCH (22:00)
[2021-12-28 00:38] VITALS: BP 103/50
[2021-12-28] MEDS: IBUPROFEN 600 MG (MOTRIN) TAB PO SCH ×3 (04:21→17:38)
[2021-12-28 04:23] VITALS: BP 99/53
[2021-12-28 05:36] LABS: BASOPHILS % (AUTO) 0 % (0-10); EOSINOPHILS # (AUTO) 0.1 10^3/uL (0.0-0.3); EOSINOPHILS % (AUTO) 1 % (0-10); HEMATOCRIT 31 % (35-52); HEMOGLOBIN 10.3 g/dL (11.5-16.0); LYMPHOCYTES # (AUTO) 2.4 10^3/uL (1.0-4.0); LYMPHOCYTES % (AUTO) 18 % (12-44); MEAN CORPUSCULAR HEMOGLOBIN 30 pg (25-34); MEAN CORPUSCULAR HGB CONC 34 g/dL (32-36); MEAN CORPUSCULAR VOLUME 90 fL (80-99); MEAN PLATELET VOLUME 10.9 fL (9.0-12.2); MONOCYTES # (AUTO) 0.8 10^3/uL (0.0-1.0); MONOCYTES % (AUTO) 6 % (0-12); NEUTROPHILS % (AUTO) 75 % (42-75); PLATELET COUNT 192 10^3/uL (130-400); WHITE BLOOD COUNT 13.4 10^3/uL (4.3-11.0)
[2021-12-28] MEDS ORDERED: PRENATAL VITAMIN 1 EA TAB PO SCH (07:00)
--- NOTE | 2021-12-28 08:20 | Discharge Summary ---
Diagnosis/Chief Complaint Date of Admission December 26, 2021 at 18:57 Date of Discharge December 28, 2021 Admission Diagnosis Admission Diagnosis 1. Intrauterine at 38 weeks gestation 2. Gestational hypertension Discharge Diagnosis 1. Intrauterine at 38 weeks gestation 2. Gestational hypertension Chief Complaint/HPI Chief Complaint/HPI 31-year-old 2 now termed 2 who initially was admitted during the evening of December 26, 2021 for induction of labor due to gestational hypertension. Her care was obtained through Dr. Damon at [facility]. She was essentially with normal care until the end of third trimester where gestational hypertension was noted. She had EDC of January 09, 2022. Her GBS status at 36 weeks negative. Discharge Summary-OBS Procedures 1. Epidural per anesthesia 2. Spontaneous vaginal delivery Discharge Physical Examination Allergies: Coded Allergies: No Known Drug Allergies (Unverified , 07/20/19) Vitals & I&Os Intake and Output 12/28/21 00:00 Intake Total 500 ml Balance 500 ml Vital Sign - Last 12Hours Date Time Temp Pulse Resp B/P (MAP) Pulse Ox O2 Delivery O2 Flow Rate FiO2 12/28/21 04:23 36.2 64 18 99/53 (68) 98 Room Air General Appearance: No Acute Distress Respiratory: Clear to Auscultation Cardiovascular: Regular Rate Abdominal: Soft (with uterus firm) Hospital Course Was the Problem List Reviewed?: Yes patient was admitted during the evening of December 26 and underwent Cytotec protocol for induction of labor. She was noted to have blood pressure control during the course of labor. She had received epidural and tolerated well. Ultimately she went on to completion and delivery was performed by Dr. Damon. Patient delivered a term viable male withApgars of 8 at 1 minute and 9 at 5 minutes. His weight was noted to be 7 lbs. 14 oz. See labor and delivery note for full details Following delivery patient underwent routine care orders. Her blood pressure remained stable during the period. She was noted to have hemoglobin in the morning of December 28 10.3 compared to admission of 11.4. Patient was without complaints in the morning of December 28. She was eager for dismissal to home that afternoon. She had tolerated regular diet and was ambulatory. She voiced no leg pain or chest pain. Labs Laboratory Tests 12/28/21 05:28: White Blood Count 13.4H, Red Blood Count 3.41L, Hemoglobin 10.3L, Hematocrit 31L , Mean Corpuscular Volume 90, Mean Corpuscular Hemoglobin 30, Mean Corpuscular Hemoglobin Concent 34, Red Cell Distribution Width 13.1, Platelet Count 192, Mean Platelet Volume 10.9, Immature Granulocyte % (Auto) 1, Neutrophils (%) (Auto) 75, Lymphocytes (%) (Auto) 18, Monocytes (%) (Auto) 6, Eosinophils (%) (Auto) 1, Basophils (%) (Auto) 0, Neutrophils # (Auto) 10.0H, Lymphocytes # (Auto) 2.4, Monocytes # (Auto) 0.8, Eosinophils # (Auto) 0.1, Basophils # (Auto) 0.0, Immature Granulocyte # (Auto) 0.1 Discharge Instructions to patient/family Please see electronic discharge instructions given to patient. Discharge Medications Reviewed and agree with Discharge Medication list on patient's Discharge Instruction sheet KATHERINE MEHTA MD December 28, 2021 08:20
[2021-12-28 11:40] VITALS: BP 136/79
[2021-12-28] MEDS: DOCUSATE SODIUM 100 MG (COLACE) CAP PO SCH (11:40)
--- NOTE | 2021-12-28 13:05 | Anesthesia-Regional Post-Op ---
Regional Patient Condition Mental Status: Alert, Oriented x3 Circulation: Same as Pre-Op Headache: Absent Sensation: Full Recovery Motor Block: Absent Post Op Complications Complications None Follow Up Care/Instructions Patient Instructions None needed. Anesthesia/Patient Condition Patient is doing well, no complaints, stable vital signs, no apparent adverse anesthesia problems. No complications reported per nursing. NEELIMA WALKER CRNA December 28, 2021 13:05
--- NOTE | 2021-12-28 16:07 | Discharge Inst-Women's Service ---
Discharge Inst-Women's Serv Depart Medication/Instructions New, Converted or Re-Newed RX: Transmitted to Pharmacy Problems Reviewed?: Yes Consults/Follow Up Additional Follow Up: Yes (Dr Damon in 6 weeks.) Activity Activity: Activity as Tolerated Driving Instructions: No Driving for 1 Week Nothing Inside Vagina: No [place] (for 6 weeks.) Diet Discharge Diet: Regular Diet Return to The Hospital For: as below Symptoms to Report to : Pain Increased, Fever Over 101 Degrees F, Vaginal Bleeding Increase, Vaginal Discharge Foul For Any Problems or Questions: Contact Your Physician KATHERINE MEHTA MD December 28, 2021 16:07
[2021-12-28 16:08] VITALS: BP 138/86
[2021-12-28] MEDS ORDERED: ACETAMINOPHEN 500 MG TAB (TYLENOL) ONE (16:26)
[2021-12-28] MEDS ORDERED: ACETAMINOPHEN 500 MG TAB (TYLENOL) PO ONE ×2 (16:30)
== END 2021-12-28 19:40 | disposition home or self-care (01) | DRG 807 ==
LOC: LDRP 18:57
PROVIDERS: ADMIT Family Medicine; ATTEND Family Medicine
PROC: 10E0XZZ Delivery of Products of Conception, External Approach (ICD-10-PCS; principal; 2021-12-27)
PROC: 10907ZC Drainage of Amniotic Fluid, Therapeutic from Products of Conception, Via Natural or Artificial Opening (ICD-10-PCS; 2021-12-27)
DX: O13.4 Gestational [pregnancy-induced] hypertension without significant proteinuria, complicating childbirth (principal); Z37.0 Single live birth; Z3A.38 38 weeks gestation of pregnancy; O70.0 First degree perineal laceration during delivery
CPT/HCPCS: 36415; 80053; 82570; 83615; 84156; 84550; 85025; 86850; 86900; 86901

== ENCOUNTER 2023-06-18 19:27 | Outpatient (CLI) | payer BC ==
[~2023-06-18] VITALS: Ht 162 cm; Wt 102.8 kg
[~2023-06-18 19:27] MED LIST changes: +BUTA1CAP41 PO; +CETI10TA17 PO; +CHOL10007 PO; +FLUT15.845 NS; +IBUP-1773 PO; +MTC10T PO; +ONDA4TAB11 PO; +PREN1TAB79 PO
[2023-06-18 20:23] VITALS: BP 118/59
[2023-06-18 20:25] LABS: BACTERIA,URINE TRACE /HPF; BILIRUBIN,URINE NEGATIVE (NEGATIVE); CLARITY,URINE SL CLOUDY; COLOR,URINE YELLOW; GLUCOSE, URINE (UA) NEGATIVE (NEGATIVE); KETONES,URINE NEGATIVE (NEGATIVE); LEUKOCYTE ESTERASE ,URINE NEGATIVE (NEGATIVE); NITRITE,URINE NEGATIVE (NEGATIVE); PH,URINE 6.5 (5-9); PROTEIN,URINE NEGATIVE (NEGATIVE); RBC,URINE RARE /HPF; WBC,URINE RARE /HPF
[2023-06-18 20:26] LABS: SQUAMOUS EPITHELIAL CELL,UR 0-2 /HPF
--- NOTE | 2023-06-19 08:02 | Physician Query-Final Dx ---
COOPER06/19/23 0802: Clinic Account Progress/Dx Physician Query: Please give diagnosis Please include # weeks gestation Date of Service Jun 18, 2023 at 19:27 MARIA DEL CARMEN VALDIVIA MD 06/19/23 1031: Clinic Account Progress/Dx DIAGNOSIS: Diagnosis Abdominal pain complicating 31 weeks gestation COOPER,AugJun 19, 2023 08:02 MARIA DEL CARMEN VALDIVIA MD Jun 19, 2023 10:31
== END 2023-06-18 20:55 | disposition home or self-care (01) ==
LOC: LDRP 19:27 → WSo 19:27
PROVIDERS: ATTEND Family Medicine
DX: O26.893 Other specified pregnancy related conditions, third trimester (principal); R10.9 Unspecified abdominal pain; Z3A.31 31 weeks gestation of pregnancy
CPT/HCPCS: 81000; 99213